=== PATIENT | female | born 1960 | race Two or more races ===

== ENCOUNTER → 2020-08-03 | Outpatient (CLI) | payer BC ==
[2020-08-03 09:17] LABS: INR 1.03 (0.9-1.15)
[2020-08-03 09:56] LABS: Calcium 9.6 mg/dL (8.5-10.1); Potassium 3.8 mmol/L (3.5-5.1)
[2020-08-03 10:03] LABS: Albumin 3.7 g/dL (3.4-5.0); BUN/Creatinine Ratio 31.1; Bilirubin, Total 0.7 mg/dL (0.2-1.0); Total Protein 7.4 g/dL (6.4-8.2)
[2020-08-05 09:35] LABS: Hepatitis B Surface Antibody Negative
[2020-08-05 10:11] LABS: Hepatitis A Total Antibody Negative
[2020-08-05 11:25] LABS: Hepatitis B Surface Antigen Negative (Negative)
[2020-08-05 11:33] LABS: Hepatitis B Core Total AB Negative
[2020-08-05 11:36] LABS: Hepatitis C Antibody Negative (Negative)
== END | disposition home or self-care (01) ==
LOC: LAB 08:30
PROVIDERS: ATTEND Internal Medicine Gastroenterology
DX: K74.60 Unspecified cirrhosis of liver (principal)
CPT/HCPCS: 36415; 80053; 82105; 82140; 82728; 84155; 84165; 85610; 86038; 86704; 86706; 86708; 86803; 87340